=== PATIENT | male | born 1985 | race American Indian/Alaskan Native ===

== ENCOUNTER 2019-02-06 17:48 | Emergency (ER) | payer SELFPAY ==
--- NOTE | 2019-02-06 18:51 | Emergency Department Report ---
- General Chief complaint: Skin/Abscess/Foreign Body Stated complaint: INSECT BITE Time Seen by Provider: 02/06/19 18:04 Source: patient Mode of arrival: Ambulatory Limitations: No Limitations - History of Present Illness Initial comments: Patient is a 33-year-old male presents to the emergency room with complaints of a lump to his lower abdomen that began two days ago. The patient states he shaved his abdomen with hair clippers. The patient's significant other states that she pulled an ingrown hair out of the area. he states he has noticed it has become larger over the last day. He denies any fever or drainage. Denies any past medical history or allergies to medications. - Related Data Previous Rx's Medication Instructions Recorded Last Taken Type Sulfamethoxazole/Trimethoprim 1 each PO BID 10 Days #20 tablet 02/06/19 Unknown Rx [Bactrim DS TAB] Allergies Allergy/AdvReac Type Severity Reaction Status Date / Time No Known Allergies Allergy Unverified 02/06/19 17:56 Abscess Boil HPI - HPI Chief Complaint: Skin/Abscess/Foreign Body Stated Complaint: INSECT BITE Time Seen by Provider: 02/06/19 18:04 Home Medications: Previous Rx's Medication Instructions Recorded Last Taken Type Sulfamethoxazole/Trimethoprim 1 each PO BID 10 Days #20 tablet 02/06/19 Unknown Rx [Bactrim DS TAB] Allergies/Adverse Reactions: Allergies Allergy/AdvReac Type Severity Reaction Status Date / Time No Known Allergies Allergy Unverified 02/06/19 17:56 ED Review of Systems ROS: Stated complaint: INSECT BITE Other details as noted in HPI Comment: All other systems reviewed and negative ED Past Medical Hx - Past Medical History Previous Medical History?: No - Surgical History Past Surgical History?: Yes Hx Appendectomy: Yes Additional Surgical History: acl - Social History Smoking Status: Never Smoker Substance Use Type: Alcohol - Medications Home Medications: Home Medications Medication Instructions Recorded Confirmed Last Taken Type Sulfamethoxazole/Trimethoprim 1 each PO BID 10 Days #20 tablet 02/06/19 Unknown Rx [Bactrim DS TAB] ED Physical Exam - General Limitations: No Limitations General appearance: alert, in no apparent distress - Head Head exam: Present: atraumatic, normocephalic - Eye Eye exam: Present: normal appearance, PERRL - ENT ENT exam: Present: mucous membranes moist - Respiratory Respiratory exam: Present: normal lung sounds bilaterally. Absent: respiratory distress, wheezes, rales, rhonchi, stridor, chest wall tenderness, accessory muscle use, decreased breath sounds, prolonged expiratory - Cardiovascular Cardiovascular Exam: Present: regular rate, normal rhythm, normal heart sounds. Absent: systolic murmur, diastolic murmur, rubs, gallop - Neurological Exam Neurological exam: Present: alert, oriented X3 - Psychiatric Psychiatric exam: Present: normal affect, normal mood - Skin Skin exam: Present: warm, dry, other (3 cm area of induration inferior to the periumbilical region, no fluctuance, no drainage, no surrounding erythema) ED Course Vital Signs 02/06/19 02/06/19 17:57 19:11 Temperature 98.5 F 98.6 F Pulse Rate 77 82 Respiratory 16 16 Rate Blood Pressure 163/89 Blood Pressure 129/80 [Right] O2 Sat by Pulse 99 99 Oximetry ED Medical Decision Making - Medical Decision Making Patient is a 33-year-old male presents to the emergency room with complaints of a lump to his lower abdomen that began two days ago. The patient states he shaved his abdomen with hair clippers. The patient's significant other states that she pulled an ingrown hair out of the area. he states he has noticed it has become larger over the last day. He denies any fever or drainage. Denies any past medical history or allergies to medications. pt is afebrile. on exam: 3 cm area of induration inferior to the periumbilical region, no fluctuance, no drainage, no surrounding erythema. examination consistent with cellulitis, no drainable abscess at this time. pt given prescription for bactrim. advised to please take medication as prescribed to completion. please use warm compresses several times throughout the day. follow up with a primary care doctor in 3 days for reevaluation. Return to the emergency room for any new or worsening symptoms or if symptoms not improving. discussed with pt that if it became larger or began draining would need to return to the ED for reevaluation. - Differential Diagnosis cellulitis, abscess, folliculitis Critical care attestation.: If time is entered above; I have spent that time in minutes in the direct care of this critically ill patient, excluding procedure time. ED Disposition Clinical Impression: Cellulitis Qualifiers: Site of cellulitis: trunk Site of cellulitis of trunk: abdominal wall Qualified Code(s): L03.311 - Cellulitis of abdominal wall Disposition: DC-01 TO HOME OR SELFCARE Is pt being admited?: No Does the pt Need Aspirin: No Condition: Stable Instructions: Cellulitis (ED) Additional Instructions: Please take medication as prescribed to completion. please use warm compresses several times throughout the day. follow up with a primary care doctor in 3 days for reevaluation. Return to the emergency room for any new or worsening symptoms or if symptoms not improving. Prescriptions: Sulfamethoxazole/Trimethoprim [Bactrim DS TAB] 1 each PO BID 10 Days #20 tablet Referrals: [facility] [Outside] - 2-3 Days [facility] [Provider Group] - 2-3 Days [facility] [Outside] - 2-3 Days Time of Disposition: 18:49 Print Language: SLOV[place]
[2019-02-06 19:13] VITALS: BP 129/80
== END 2019-02-06 19:00 | disposition home or self-care (01) ==
LOC: ED 17:48
DX: L03.311 Cellulitis of abdominal wall (principal); Z90.49 Acquired absence of other specified parts of digestive tract; Z79.899 Other long term (current) drug therapy
CPT/HCPCS: 99282